=== PATIENT | male | born 1990 | race Caucasian/White ===

== ENCOUNTER → 2021-03-07 | Outpatient (REF) | LOC: M LABSMTC 09:18 | PROVIDERS: ATTEND Family Medicine | DX: Z20.822 Contact with and (suspected) exposure to COVID-19 (principal) ==

== ENCOUNTER → 2021-09-05 | Outpatient (REF) | LOC: M LABSMTC 09:18 | PROVIDERS: ATTEND Family Medicine | DX: Z11.52 Encounter for screening for COVID-19 (principal) ==

== ENCOUNTER → 2021-11-16 | Outpatient (REF) | LOC: M LABSMTC 11:03 | PROVIDERS: ATTEND Family Medicine | DX: Z00.00 Encounter for general adult medical examination without abnormal findings (principal) ==

== ENCOUNTER → 2021-11-20 | Outpatient (REF) | LOC: M LABSMTC 10:48 | PROVIDERS: ATTEND Family Medicine | DX: Z20.822 Contact with and (suspected) exposure to COVID-19 (principal) ==